=== PATIENT | female | born 1965 | race Caucasian/White ===

== ENCOUNTER 2017-12-28 07:50 | Outpatient (CLI) | payer BC | END 2017-12-28 07:51 | disposition home or self-care (01) | LOC: BICMAMMO 07:50 | PROVIDERS: ATTEND Obstetrics & Gynecology | DX: Z12.31 Encounter for screening mammogram for malignant neoplasm of breast (principal) | CPT/HCPCS: 77063; 77067 ==

== ENCOUNTER 2018-09-04 07:12 | Outpatient (CLI) | payer BC ==
--- NOTE | 2018-09-04 09:03 | ULT ---
ULTRASOUND ABDOMEN: HISTORY: Family history of colon polyps, chronic idiopathic constipation, and hypertriglyceridemia. FINDINGS: The liver demonstrates a homogeneous echotexture without focal mass or intrahepatic ductal dilatation . No gallstones, gallbladder wall thickening, or pericholecystic fluid is seen. The spleen measures 9 cm in length and is normal. The kidneys, pancreas, and visualized portions of the aorta and IVC a re unremarkable. No free fluid is seen. The common duct measures 3 mm in diameter. IMPRESSION: Normal examination. POS: [facility]
== END 2018-09-04 07:13 | disposition home or self-care (01) ==
LOC: SCSULT 07:12
PROVIDERS: ATTEND Internal Medicine Gastroenterology
DX: K59.04 Chronic idiopathic constipation (principal); E78.1 Pure hyperglyceridemia; Z83.71 Family history of colonic polyps
CPT/HCPCS: 76700

== ENCOUNTER 2019-02-07 12:42 | Outpatient (CLI) | payer BC ==
--- NOTE | 2019-02-07 13:40 | MMO ---
Bilateral MAMMO Bilat Screen [facility]. CLINICAL HISTORY: Patient is 53 years old and is seen for screening. The patient has no family history of breast cancer. The patient has no personal history of cancer. VIEWS: The views performed were: bilateral craniocaudal with tomosynthesis and bilateral mediolateral oblique with tomosynthesis. FILMS COMPARED: The present examination has been compared to prior imaging studies performed at [facility] on 09/18/2005, 10/16/2006, 11/07/2007, 11/09/2008, 01/19/2010, 01/20/2011, 01/22/2012, 09/15/2015, 10/24/2016 and 12/28/2017. MAMMOGRAM FINDINGS: The breasts are heterogeneously dense, which could obscure a lesion on mammography. There are stable benign appearing calcifications seen in both breasts. There are no suspicious masses, suspicious calcifications, or new areas of architectural distortion. IMPRESSION: THERE IS NO MAMMOGRAPHIC EVIDENCE OF MALIGNANCY. A ROUTINE FOLLOW-UP MAMMOGRAM IN 1 YEAR IS RECOMMENDED. THE RESULTS OF THIS EXAM WERE SENT TO THE PATIENT. ACR BI-RADS Category 2 - Benign finding MAMMOGRAPHY NOTE: 1. A negative mammogram report should not delay a biopsy if a dominant of clinically suspicious mass is present. 2. Approximately 10% to 15% of breast cancers are not detected by mammography. 3. Adenosis and dense breasts may obscure an underlying neoplasm.
== END 2019-02-07 12:43 | disposition home or self-care (01) ==
LOC: BICMAMMO 12:42
PROVIDERS: ATTEND Obstetrics & Gynecology
DX: Z12.31 Encounter for screening mammogram for malignant neoplasm of breast (principal)
CPT/HCPCS: 77063; 77067

== ENCOUNTER 2019-03-04 15:25 | Outpatient (CLI) | payer BC ==
--- NOTE | 2019-03-04 16:31 | RAD ---
EXAM: CHEST TWO VIEWS: 03/04/19 HISTORY: Chest pain and congestion with cough right lower zone pneumonia. FINDINGS: Heart size is normal. The lungs are clear. IMPRESSION: No significant acute intrathoracic disease. No evidence for pneumonia. POS: [facility]
== END 2019-03-04 15:26 | disposition home or self-care (01) ==
LOC: SCSRAD 15:25
PROVIDERS: ATTEND Student in an Organized Health Care Education/Training Program
DX: J18.1 Lobar pneumonia, unspecified organism (principal)
CPT/HCPCS: 71046

== ENCOUNTER 2022-12-26 14:13 | Outpatient (CLI) | payer BC | END 2022-12-26 14:14 | disposition home or self-care (01) | LOC: BICMAMMO 14:13 | PROVIDERS: ATTEND Student in an Organized Health Care Education/Training Program | DX: Z13.820 Encounter for screening for osteoporosis (principal) | CPT/HCPCS: 77080 ==